=== PATIENT | male | born 1965 | race Caucasian/White ===

== ENCOUNTER 2021-01-31 07:32 | Emergency (ER) | payer OTHER, SELFPAY ==
[2021-01-31] VITALS (9 sets, daily range): BP systolic 131–157; BP diastolic 76–108; PULSE 72–94; RESP 17–18; TEMP 36.4; O2SAT 97–100
--- NOTE | ~2021-01-31 | CT_ITS ---
EXAMINATION: CT chest abdomen pelvis w con EXAM DATE: 01/31/2021 11:27 INDICATION: Right flank pain, blunt trauma. Right rib fractures on x-ray. TECHNIQUE: Spiral CT of the chest, abdomen and pelvis was performed following intravenous injection o f 100 mL Omnipaque 350. Axial, coronal and sagittal images chest, abdomen and pelvis were reviewed. Coronal maximum intensity pixel images of chest reviewed. The dose-length product (DLP) for this ex amination was 462.35 mGy-cm. The exposure was tailored according to patient size (auto mA exposure c ontrol), and iterative reconstruction (ASIR) was used as additional dose reduction technique. Correla tion is made to Right rib x-ray earlier same date. FINDINGS: CHEST: Right rib fractures identified on x-ray are well corticated, old injuries. There are no acute fractures identified. Some punctate scattered lung calcifications, granulomas. There are no pleura l or pericardial effusions. Tracheobronchial tree is patent. There is no mediastinal, hilar or ax illary lymphadenopathy. There is no pneumothorax. Heart normal in size. There is mild coronary arterial calcification, arterial sclerosis. ABDOMEN PELVIS: There is hepatic steatosis without suspicious focal lesion identified. Spleen, adrena l glands, pancreas are unremarkable. Gallbladder is unremarkable. No biliary obstruction. Portal a nd splenic veins are patent. Kidneys enhance symmetrically. There is no hydronephrosis. The prost ate is unremarkable. The bladder is unremarkable. There is no retroperitoneal or pelvic lymphadenop athy. There is mild scattered arteriosclerotic disease. There are no findings to suggest appendicitis. The stomach and small bowel are unremarkable. There i s extensive sigmoid predominant colonic diverticulosis. There is no adjacent inflammatory change to suggest diverticulitis. No free intraperitoneal gas. There are no acute fractures identified. IMPRESSION: 1. No acute chest, abdomen or pelvis findings. 2. Hepatic steatosis. 3. Colonic diverticulosis. Reviewed, dictated and finalized at location A.
--- NOTE | ~2021-01-31 | XR_ITS ---
EXAMINATION: XR knee LT 3V EXAM DATE: 01/31/2021 07:58 INDICATION: Fall from tailgate of truck pain at rt ribs and lt knee . Initial encounter. TECHNIQUE: Three projections of the left knee. There is no prior study for comparison. FINDINGS: No evidence osteochondral defect or joint body in the left knee joint. There are no acute fractures or dislocations identified. There is no subcutaneous gas. Probable small to moderate salvatore nt effusion. There is edema surrounding the patellar tendon. Serpiginous structure along the leg medi ally likely varicose vein. There are no radiopaque foreign bodies. IMPRESSION: 1. XR knee LT 3V exam without acute osseous findings. 2. Probable joint effusion. 3. Anterior edema. 4. Probable varicosity. Reviewed, dictated and finalized at location A.
--- NOTE | ~2021-01-31 | XR_ITS ---
EXAMINATION: XR ribs RT 2V EXAM DATE: 01/31/2021 07:58 INDICATION: Fall from tailgate of truck pain at rt ribs and lt knee . Initial encounter. TECHNIQUE: Frontal projection of the upper right ribs, frontal projection of the lower right ribs, ob lique projection of the right ribs, without chest x-ray(s) for interpretation. Correlation is made to chest x-ray 10/30/2013. FINDINGS: There are several chronic appearing right rib fractures. The right 7th rib fracture posteri valentino is age indeterminate. No right-sided pneumothorax. Cardiomediastinal silhouette is normal. IMPRESSION: Several right rib fractures, 7th could be acute. Reviewed, dictated and finalized at location A.
--- NOTE | 2021-01-31 07:47 | PC.NURSE ---
Pt is outside smoking when radiology here to take him for xrays.
[2021-01-31 09:51] LABS: Basophils Absolute Auto 0.1 K/mm3 (0.0-0.1); Basophils Percent Auto 0.7 % (0.2-1.2); Eosinophils Absolute Auto 0.1 K/mm3 (0-0.3); Eosinophils Percent Auto 1.1 % (0-4.4); Immature Granulocyte Absolute 0.02 K/mm3 (0.00-0.031); Immature Granulocyte Percent A 0.3 % (0-0.5); Lymphocytes Absolute Auto 1.15 K/mm3 (0.9-3.2); Lymphocytes Percent Auto 15.5 % (18.3-44.2); Mean Corpuscular Hemoglobin 33.8 pg (26-34); Mean Corpuscular Volume 99.4 fl (80-100); Mean Platelet Volume 9.6 fl (7.4-10.4); Monocytes Absolute Auto 0.9 K/mm3 (0.1-0.6); Monocytes Percent Auto 12.3 % (2.6-8.5); Neutrophils Absolute Auto 5.2 K/mm3 (1.3-6.7); Neutrophils Percent Auto 70.1 % (45.5-73.1); Platelet Count Result 213 k/mm3 (150-375); Red Blood Count 4.73 M/mm3 (4.6-6.20); Red Cell Distribution Width 13.1 % (11.5-14.5); White Blood Count 7.4 K/mm3 (4.5-10.0)
--- NOTE | 2021-01-31 10:14 | PC.NURSE ---
pt disgruntled about care time, states she wants to elope, I informed pt that I can have him sign ama if that is his wish, pt upset that edp has not ordered anything for pain, edp not at desk, note left asking for pain meds, awaiting response. Pt updated.
--- NOTE | 2021-01-31 10:20 | ED.FALL ---
HPI - Fall General Chief Complaint: Fall Stated Complaint: fall yesterday Time Seen by Provider: 01/31/21 08:54 Source: patient and RN notes reviewed Mode of arrival: ambulatory Limitations: no limitations History of Present Illness HPI Narrative: THis is a 55 year old male who presents for evaluation of right rib and right flank pain s/p fall. 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 He states he was standing on a tailgate of truck that gave way. He states he fell from 4 ft up and he landed on larger teeth of machine. He has a laceration right flank. He reports right rib pain when breathing. He also has left knee pain. He denies hitting his head or LOC. He denies shortness of breath, nausea or vomiting. Related Data Home Medications Medication Instructions Recorded Confirmed allopurinol 01/31/21 01/31/21 alprazolam 01/31/21 citalopram mg 01/31/21 montelukast mg 01/31/21 pantoprazole PO 01/31/21 Allergies Allergy/AdvReac Type Severity Reaction Status Date / Time No Known Allergies Allergy Unverified 06/26/18 07:14 Review of Systems Review of Systems: All systems reviewed & are unremarkable except as noted in HPI and below PMFSH Past Medical History Medical History (Updated 01/31/21 @ 12:05 by Taya Pringle MD) Anxiety GERD (gastroesophageal reflux disease) Gout Surgical History Surgical History (Updated 01/31/21 @ 10:24 by Taya Pringle MD) History of carpal tunnel release Social History Social History (Updated 01/31/21 @ 10:24 by Taya Pringle MD) Smoking status: Former smoker Exam Const: General: alert Nutritional Appearance: thin Orientation/consciousness: patient oriented x3 Eyes: EOM: EOMs intact bilaterally Chest: Chest palpation & inspection: tenderness rib (right lateral , posterior and anterior rib at 9,10) Resp: Effort & Inspection: normal respiratory effort and no retractions Auscultation: clear to auscultation bilaterally Cardio: Rate: regular rate Rhythm: regular rhythm Heart sounds: no murmurs GI: GI Palp: Yes Soft to palpation, Yes Tenderness to palpation present (GI) (right UQ), No Guarding due to palpation present (GI) and No Rigid due to palpation Auscultation: normal bowel sounds Other: abrasion to right upper abdomen Skin: General skin exam: normal color Neuro: General: patient oriented x3, moves all extremities and CN's II-XI intact bilaterally Extrem: Other: left lower leg with varicose veins Psych: Mental Status: mental status grossly normal Affect: normal affect Course Reevaluation(s) Reevaluation #1: I Discussed with patient no acute fracture found . His rib fractures are old. Date: 01/31/21 Time: 12:03 Vital Signs Vital signs: Vital Signs Temperature 97.6 F 01/31/21 07:34 Pulse Rate 94 01/31/21 07:34 Respiratory Rate 18 01/31/21 07:34 Blood Pressure 157/108 H 01/31/21 07:34 Pulse Oximetry 97 01/31/21 07:34 Temperature 97.6 F 01/31/21 07:34 Pulse Rate 72 01/31/21 12:15 Respiratory Rate 18 01/31/21 12:15 Blood Pressure 145/76 H 01/31/21 12:15 Pulse Oximetry 100 01/31/21 12:15 MDM - Fall Lab Data Attestation: I reviewed the patient's lab results. Result diagrams: 01/31/21 09:37 01/31/21 09:37 Labs: Lab Results 01/31/21 01/31/21 Range/Units 09:37 09:37 WBC 7.4 (4.5-10.0) K/mm3 RBC 4.73 (4.6-6.20) M/mm3 Hgb 16.0 (14.0-18.0) g/dL Hct 47.0 (42.0-52.0) % MCV 99.4 (80-100) fl MCH 33.8 (26-34) pg MCHC 34.0 (32-36) g/dl RDW 13.1 (11.5-14.5) % Plt Count 213 (150-375) k/mm3 MPV 9.6 (7.4-10.4) fl Immature Gran % (Auto) 0.3 (0-0.5) % Neut % (Auto) 70.1 (45.5-73.1) % Lymph % (Auto) 15.5 L (18.3-44.2) % Gladwin % (Auto) 12.3 H (2.6-8.5) % Eos % (Auto) 1.1 (0-4.4) % Baso % (Auto) 0.7 (0.2-1.2) % Lymph # (Auto) 1.15 (0.9-3.2) K/mm3 Gladwin # (Auto)
[2021-01-31 10:27] LABS: Alanine Aminotransferase 22 U/L (4-50); Albumin Level 4.4 g/dL (3.5-5.1); Alkaline Phosphatase 93 U/L (38-126); Anion Gap 8 mmol/L (8-16); Aspartate Amino Transferase 37 U/L (17-59); Bilirubin,Total 0.7 mg/dL (0.2-1.3); Blood Urea Nitrogen 13 mg/dL (9-20); Calcium 9.7 mg/dL (8.4-10.2); Carbon Dioxide 26 mmol/L (22-30); Chloride 100 mmol/L (98-107); Estimated CRCL calculation 125 ml/min; Estimated Glomerular Filt Rate > 60; Glucose 97 mg/dL (65-110); Potassium 4.5 mmol/L (3.4-5.0); Sodium 134 mmol/L (137-145)
[2021-01-31] MEDS: ONDANSETRON INJ 4 MG/2 ML VIAL IV PUSH (10:30)
[2021-01-31] MEDS: MORPHINE SULFATE (*CRX) 4 MG/ML INJ IV PUSH (10:30)
== END 2021-01-31 12:20 | disposition home or self-care (01) ==
PROVIDERS: Emergency Provider General Practice; PCP Nurse Practitioner Adult Health
DX: S30.1XXA Contusion of abdominal wall, initial encounter (principal); S20.211A Contusion of right front wall of thorax, initial encounter; S83.92XA Sprain of unspecified site of left knee, initial encounter; F41.9 Anxiety disorder, unspecified; Z87.891 Personal history of nicotine dependence; W17.89XA Other fall from one level to another, initial encounter; Y99.0 Civilian activity done for income or pay
CPT/HCPCS: 36415; 71100; 71260; 73562; 74177; 80053; 85025; 96374; 96375; 99284; J2270; J2405; Q9967

== ENCOUNTER 2021-03-09 17:53 | Emergency (ER) | payer OTHER, SELFPAY ==
--- NOTE | ~2021-03-09 | XR_ITS ---
EXAMINATION: XR finger 3rd RT min 2V INDICATION: Right third finger pain TECHNIQUE: Three views of the right third finger are obtained. COMPARISON: None available FINDINGS: There is a soft tissue laceration of the palmar aspect of the finger overlying the distal a spect of the middle phalanx. There appear to be two minute radiopaque foreign bodies, one at the prox imal margin of the laceration and the other projecting at the palmar aspect of the finger at the leve l of the distal interphalangeal joint. No fracture is identified. The joint spaces are normal. IMPRESSION: 1. Soft tissue laceration with possible tiny foreign bodies the third finger. No fracture identified. Reviewed, dictated and finalized at location A. IMPRESSION: 1. Soft tissue laceration with possible tiny foreign bodies the third finger. N o fracture identified.
--- NOTE | 2021-03-09 18:21 | PC.NURSE ---
Saw pt walk out of ER - gait steady no distress
[2021-03-09 19:00] VITALS: BP 148/96; PULSE 69; RESP 16; TEMP 36.6; O2SAT 100
--- NOTE | 2021-03-09 20:38 | ED.WOUNDLAC ---
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 Patient denies other injuries. Related Data Home Medications Medication Instructions Recorded Confirmed allopurinol 01/31/21 01/31/21 alprazolam 01/31/21 citalopram mg 01/31/21 montelukast mg 01/31/21 pantoprazole PO 01/31/21 Allergies Allergy/AdvReac Type Severity Reaction Status Date / Time No Known Allergies Allergy Verified 03/09/21 20:52 Review of Systems Review of Systems: CONSTITUTIONAL: Denies fever, chills, or sweats. EYES: Denies visual changes, redness, or discharge. ENT: Denies rhinorrhea, congestion, sore throat, or otalgia. CARDIOVASCULAR: Denies chest pain, palpitations, or edema. RESPIRATORY: Denies cough or dyspnea. GASTROINTESTINAL: Denies abdominal pain, nausea, vomiting, or diarrhea. GENITOURINARY: Denies dysuria or hematuria. SKIN: Denies rash or itching. MUSCULOSKELETAL: Denies back pain, joint pain, or myalgia. NEUROLOGIC: Denies headache, numbness, or weakness. PSYCHIATRIC: Denies anxiety or depression. PMFSH Past Medical History Medical History Anxiety GERD (gastroesophageal reflux disease) Gout Surgical History Surgical History History of carpal tunnel release Social History Social History Smoking status: Former smoker Exam Narrative: General appearance: Well-developed, well-nourished Skin: Normal color Head: Normocephalic, nontraumatic Chest and respiratory: Airway patent, no respiratory distress, no accessory muscle use Heart: Regular rate/rhythm Vascular: Normal peripheral pulses, normal capillary refill. Musculoskeletal: Right middle finger showed a crush injury, laceration at the plantar side. No obvious deformity. Limited range of motion. Neurologic: Alert and oriented ?3, [employer] is normal as tested, no gross motor deficit Course Course Emergency Course: Stable Vital Signs Vital signs: Vital Signs Temperature 36.6 C 03/09/21 19:00 Pulse Rate 69 03/09/21 19:00 Respiratory Rate 16 03/09/21 19:00 Blood Pressure 148/96 H 03/09/21 19:00 Pulse Oximetry 100 03/09/21 19:00 Temperature 36.6 C 03/09/21 19:00 Pulse Rate 69 03/09/21 19:00 Respiratory Rate 16 03/09/21 19:00 Blood Pressure 148/96 H 03/09/21 19:00 Pulse Oximetry 100 03/09/21 19:00 Procedures Laceration Laceration 1: Date: 03/09/21 Time: 21:32 Site: other (Middle finger) Side (If applicable): right Size (cm): 2.5 Description: stellate, irregular and other (Crushed skin, missing skin) Depth: simple, single layer Local Anesthetic: lidocaine 1% and with epi Amount of anesthesia used (mL): 2 Pre-repair: irrigated and minor debridement ====== Skin Level ====== Skin layer closed with: other (Ethanol) Size (cm): 6-0 Number of sutures: 8 Technique: simple, interrupted ====== Subcutaneous Layer ====== ====== Muscle Layer ====== ====== Tendon Layer ====== MDM - Wound/Laceration MDM Narrative Medical decision making narrative: Right finger crush injury. X-ray ordered, tetanus shot ordered. Further plan to follow. Imaging Data Radiologist's impression: Impressions Finger X-
--- NOTE | 2021-03-09 21:17 | PC.NURSE ---
Dr Renteria at bedside stitching wound
[2021-03-09] MEDS: TETANUS,DIPHTHERIA,AC PERTUSSIS ADULT (0.5 ML) BOOSTRIX IM (21:31)
[2021-03-09] MEDS: CEPHALEXIN 500 MG CAPSULE PO (21:37)
[2021-03-09 21:55] VITALS: BP 135/93; PULSE 65; RESP 18; TEMP 36.8; O2SAT 100
== END 2021-03-09 21:55 | disposition home or self-care (01) ==
PROVIDERS: Emergency Provider Emergency Medicine; PCP Nurse Practitioner Adult Health
DX: S61.212A Laceration without foreign body of right middle finger without damage to nail, initial encounter (principal); Z23 Encounter for immunization; K21.9 Gastro-esophageal reflux disease without esophagitis; M10.9 Gout, unspecified; F41.9 Anxiety disorder, unspecified; Z87.891 Personal history of nicotine dependence; W23.0XXA Caught, crushed, jammed, or pinched between moving objects, initial encounter; Y93.H2 Activity, gardening and landscaping
CPT/HCPCS: 12001; 73140; 90471; 90715; 99283; A9270